=== PATIENT | female | born 1935 | race Caucasian/White ===

== ENCOUNTER 2017-11-18 07:05 | Day surgery (SDC) | payer OTHER ==
[~2017-11-18 07:05] MED LIST: ALBU90OI6 INH; BACL10 PO; CALCIUM, MAG, ZINC; CALTRATE D; CIPR500 PO; CLON.1 PO; CLON.1TP; CLON.1TP TP; CLON.2; CLON.2 PO; CLON2 PO; CODBUTACEC; CODBUTACEC PO; CYMBALTA; DULO60 PO; ESOM20 PO; ESTRACE; FLUT.05NI; FLUT44OIA INH; HYDACE10B PO; HYDACE5; HYDACE5 PO; HYDACE5325; IRON; LANS15EC; LANS30EC PO; LEVSOD150 PO; LEVSOD175; LEVSOD175 PO; LIDO5TP TOP; LOPE2C PO; LOPERAMIDE; LOSA25 PO; LOSHYD; LOSHYD100 PO; MAGOXI400 PO; METO10 PO; METO50 PO; MIRT15 PO; MULVITMINE PO; MUPI2TO TOP; NAPR500 PO; NEXIUM PO; NITR100 PO; OLAN10 PO; OXYACE5T PO; OXYC10TA19 PO; OXYC15ER PO; OXYCODONE; POTCHL10ER PO; POTCHL20ER PO; PREG100 PO; PREG150 PO; PROM25 PO; PROM25S PR; QUET100; QUIN325 PO; ROFE12.5; SUCR1 PO; TEQUIN PO; THYROID; TRAM50 PO; TRAZ100 PO; TRAZ50 PO; TUMS; VENL25 PO; VENL75; Ventolin Soln3 ML INH; ZOLP10 PO; ZOLP5; ZOLP5 PO; [UNRECOGNIZED DRUG - OTHER]; [UNRECOGNIZED DRUG - OTHER]; [UNRECOGNIZED DRUG - REMARK]; [UNRECOGNIZED DRUG - REMARK]; [UNRECOGNIZED DRUG - REMARK]
[2017-11-20 15:37] LABS: Performing Lab SYMBIODX; Test Name HER2 FISH
== END 2017-11-18 22:48 | disposition home or self-care (01) ==
LOC: MOI US 07:05 → MOI MAM 07:15 → MOI US 22:48
PROVIDERS: Family Medicine
DX: C50.912 Malignant neoplasm of unspecified site of left female breast (principal); Z17.0 Estrogen receptor positive status [ER+]
CPT/HCPCS: 19083; 19084; 38505; 76942; 77066; A4648

== ENCOUNTER → 2018-05-26 | Outpatient (CLI) | payer OTHER ==
[~2018-05-26] MED LIST changes: +ACIDOPHILUS1 EAC1 PO; +ALUM-MAG HYDRO360 ML PO; +BELSOMRA20 MG PO; +BUSP15 PO; +Butalbital-Asa1 EAC1 PO; +CALTRATE 600 +1 EACH PO; +DEXL60CA3 PO; +DICLOFONO2.5 GM TOP; +Estrace Vagin42.5 GM VAG; +Flonase 0.05% N16 GM; +Flovent 110 MCG12 GM INH; +K-Dur20 MEQ PO; +LOSARTAN-HCTZ1 EAC1 PO; +MAGOX 400400 MG PO; +MOME220I INH; +Norco 10-325 T1 EACH PO; +ONDA4ODT MM; +Pyridium100 MG PO; +RANI150EL PO; +SIME40L PO; +Synthroid/Lev0.15 MG PO; +TUMS300 MG PO; +WOMEN'S DAILY1 EAC1 PO; +[UNRECOGNIZED DRUG - OTHER] PO
== END | disposition home or self-care (01) ==
LOC: LAB 17:21 → LAB SHORT 17:21
DX: N39.0 Urinary tract infection, site not specified (principal)
CPT/HCPCS: 87077; 87086; 87186

== ENCOUNTER → 2018-06-25 | Outpatient (CLI) | payer OTHER ==
[~2018-06-25] MED LIST changes: +AMIT25 PO; +AMLO10 PO; +ANASTROZOLE 1MG PO; +ANASTROZOLE5 GM PO; +BUTALB-ACETAMI1 EACH PO; +CYCL10 PO; +DIPH50 PO; +Driminate50 MG PO; +MELA3 PO; +ONDA4 PO; +Omeprazole20 M1 PO; +RANITIDINE 150MG PO; +SACC250C PO; +VANC125 PO
[2018-06-25 19:18] LABS: Appearance, Urine Hazy (Clear); Blood, Urine 3+ (Neg); Color, Urine Yellow (P-Yellow); Glucose Qualitative, Urine Neg (Neg); Ketones, Urine Neg (Neg); Leukocyte Esterase, Urine 3+ (Neg); Nitrite, Urine Pos (Neg); Protein, Urine 2+ (Neg); Urobilinogen, Urine 2+ (Normal)
[2018-06-25 19:35] LABS: Bilirubin, Urine 2+ (Neg)
[2018-06-25 19:36] LABS: White Blood Cells, Urine 50-100 /hpf (0-5)
[2018-06-25 19:38] LABS: Bacteria Few /hpf; Squamous Epithelial Cells Few /hpf (Few)
== END | disposition home or self-care (01) ==
LOC: LAB SHORT 18:33 → LAB 18:33
PROVIDERS: Nurse Practitioner Family
DX: R82.90 Unspecified abnormal findings in urine (principal)
CPT/HCPCS: 81001; 87077; 87086; 87186

== ENCOUNTER → 2018-07-07 | Outpatient (CLI) | payer OTHER ==
[2018-07-07 18:51] LABS: Appearance, Urine Clear (Clear); Bilirubin, Urine Neg (Neg); Blood, Urine 1+ (Neg); Color, Urine Yellow (P-Yellow); Glucose Qualitative, Urine Neg (Neg); Ketones, Urine Neg (Neg); Leukocyte Esterase, Urine 3+ (Neg); Nitrite, Urine Neg (Neg); Protein, Urine 1+ (Neg); Specific Gravity, Urine 1.005 (1.003-1.022); Urobilinogen, Urine NORM (Normal)
[2018-07-07 19:33] LABS: Squamous Epithelial Cells Rare /hpf (Few)
[2018-07-07 19:35] LABS: Bacteria Rare /hpf
== END | disposition home or self-care (01) ==
LOC: LAB 18:38 → LAB SHORT 18:38
PROVIDERS: Nurse Practitioner Family
DX: N39.0 Urinary tract infection, site not specified (principal)
CPT/HCPCS: 81001; 87077; 87086; 87186

== ENCOUNTER → 2018-09-14 | Outpatient (CLI) | payer OTHER ==
[2018-09-14 14:43] LABS: Source, Urine Clean Catch
[2018-09-14 15:10] LABS: Red Blood Cells, Urine 0-2 /hpf (0-2)
[2018-09-14 15:11] LABS: Bacteria Few /hpf; Squamous Epithelial Cells Few /hpf (Few)
== END | disposition home or self-care (01) ==
LOC: LAB SHORT 14:42 → LAB 14:42 → LAB FUT 09-15 14:10
PROVIDERS: Urology
DX: N39.0 Urinary tract infection, site not specified (principal)
CPT/HCPCS: 81015; 87077; 87086; 87186

== ENCOUNTER → 2018-10-26 | Outpatient (CLI) | payer OTHER ==
[2018-10-27 15:24] LABS: Source, Urine Clean Catch
[2018-10-27 18:11] LABS: Bilirubin, Urine Neg (Neg); Blood, Urine Neg (Neg); Glucose Qualitative, Urine Neg (Neg); Ketones, Urine Neg (Neg); Leukocyte Esterase, Urine Neg (Neg); Nitrite, Urine Pos (Neg); Protein, Urine Neg (Neg); Urobilinogen, Urine NORM (Normal)
[2018-10-27 18:25] LABS: Appearance, Urine Clear (Clear); Color, Urine Yellow (P-Yellow)
[2018-10-27 18:26] LABS: Bacteria Many /hpf; Red Blood Cells, Urine 0-2 /hpf (0-2); Squamous Epithelial Cells Few /hpf (Few)
== END | disposition home or self-care (01) ==
LOC: LAB SHORT 15:22 → LAB 15:22
PROVIDERS: Urology
DX: N39.0 Urinary tract infection, site not specified (principal)
CPT/HCPCS: 81001; 87077; 87086; 87147; 87186

== ENCOUNTER → 2018-11-03 | Outpatient (CLI) | payer OTHER ==
[2018-11-03 16:21] LABS: Source, Urine Clean Catch
[2018-11-03 18:26] LABS: Bilirubin, Urine Neg (Neg); Blood, Urine 1+ (Neg); Glucose Qualitative, Urine Neg (Neg); Ketones, Urine Neg (Neg); Leukocyte Esterase, Urine Neg (Neg); Nitrite, Urine Neg (Neg); Protein, Urine Neg (Neg); Specific Gravity, Urine 1.015 (1.003-1.022); Urobilinogen, Urine NORM (Normal)
[2018-11-03 19:04] LABS: Appearance, Urine Clear (Clear); Color, Urine Yellow (P-Yellow)
[2018-11-03 19:05] LABS: Bacteria Few /hpf; Mucus Light (0-Heavy); Red Blood Cells, Urine 0-2 /hpf (0-2); Squamous Epithelial Cells Few /hpf (Few); White Blood Cells, Urine 0-2 /hpf (0-5)
== END | disposition home or self-care (01) ==
LOC: LAB SHORT 16:18 → LAB 16:18
PROVIDERS: Urology
DX: N39.0 Urinary tract infection, site not specified (principal)
CPT/HCPCS: 81001; 87077; 87086; 87186

== ENCOUNTER → 2018-12-02 | Outpatient (CLI) | payer OTHER | END | disposition home or self-care (01) | LOC: LAB SHORT 19:18 → LAB 19:18 | DX: K52.9 Noninfective gastroenteritis and colitis, unspecified (principal) | CPT/HCPCS: 87177; 87209 ==

== ENCOUNTER → 2018-12-08 | Outpatient (CLI) | payer OTHER ==
[2018-12-09 12:00] LABS: Adenovirus F 40/41 Not Detected (NOT DETECT); Astrovirus Not Detected (NOT DETECT); Campylobacter Sp Not Detected (NOT DETECT); Cryptosporidium Not Detected (NOT DETECT); Cyclospora Cayetanensis Not Detected (NOT DETECT); E. Coli O157 Not Detected (NOT DETECT); Entamoeba Histolytica Not Detected (NOT DETECT); Enteroaggregative E. coli-EAEC Not Detected (NOT DETECT); Enteropathogenic E. coli-EPEC Not Detected (NOT DETECT); Enterotoxigenic E. coli-ETEC Not Detected (NOT DETECT); Giardia Lamblia Not Detected (NOT DETECT); Norovirus GI/GII Not Detected (NOT DETECT); Plesiomonas Shigelloides Not Detected (NOT DETECT); Rotavirus A Not Detected (NOT DETECT); Salmonella Sp Not Detected (NOT DETECT); Sapovirus Not Detected (NOT DETECT); Shiga Toxin-prod E. coli-STEC Not Detected (NOT DETECT); Shigella/Enteroin E. coli-EIEC Not Detected (NOT DETECT); Vibrio Cholerae Not Detected (NOT DETECT); Vibrio Sp Not Detected (NOT DETECT); Yersinia Enterocolitica Not Detected (NOT DETECT)
== END | disposition home or self-care (01) ==
LOC: LAB 11:45 → LAB SHORT 11:45 → LAB FUT 12-01 07:45
PROVIDERS: Nurse Practitioner Family
DX: K52.9 Noninfective gastroenteritis and colitis, unspecified (principal)
CPT/HCPCS: 0097U; 87324

== ENCOUNTER → 2018-12-09 | Outpatient (CLI) | payer OTHER ==
[2018-12-09 19:12] LABS: Appearance, Urine Clear (Clear); Bilirubin, Urine Neg (Neg); Blood, Urine Neg (Neg); Color, Urine Yellow (P-Yellow); Glucose Qualitative, Urine Neg (Neg); Ketones, Urine Neg (Neg); Leukocyte Esterase, Urine Neg (Neg); Nitrite, Urine Neg (Neg); Protein, Urine Neg (Neg); Specific Gravity, Urine 1.005 (1.003-1.022); Urobilinogen, Urine NORM (Normal)
== END | disposition home or self-care (01) ==
LOC: LAB SHORT 18:03 → LAB 18:03
PROVIDERS: Urology
DX: N39.0 Urinary tract infection, site not specified (principal)
CPT/HCPCS: 81003; 87077; 87086; 87147; 87186

== ENCOUNTER → 2019-07-14 | Outpatient (CLI) | payer OTHER ==
[2019-07-14 19:50] LABS: Bilirubin, Urine Neg (Neg); Blood, Urine 1+ (Neg); Glucose Qualitative, Urine Neg (Neg); Ketones, Urine 1+ (Neg); Leukocyte Esterase, Urine 3+ (Neg); Nitrite, Urine Neg (Neg); Protein, Urine 1+ (Neg); Specific Gravity, Urine 1.025 (1.003-1.022); Urobilinogen, Urine NORM (Normal)
[2019-07-14 20:01] LABS: Appearance, Urine Cloudy (Clear); Color, Urine Yellow (P-Yellow)
[2019-07-14 20:03] LABS: Red Blood Cells, Urine Not Seen /hpf (0-2); Squamous Epithelial Cells Rare /hpf (Few); White Blood Cells, Urine 25-50 /hpf (0-5)
[2019-07-14 20:04] LABS: Amorphous Heavy (0-Heavy); Bacteria Few /hpf
== END | disposition home or self-care (01) ==
LOC: LAB 17:32 → LAB SHORT 17:32
PROVIDERS: Urology
DX: N39.0 Urinary tract infection, site not specified (principal)
CPT/HCPCS: 81001; 87077; 87086; 87186

== ENCOUNTER 2022-08-27 09:25 | Inpatient (IN) | payer OTHER ==
[~2022-08-27] VITALS: Ht 165.1 cm; Wt 111.1 kg
[~2022-08-27 09:25] MED LIST changes: +ATOR20 PO; +CILO100 PO; +DOXE10 PO; +HYDHCL25 PO
[2022-08-27 10:32] LABS: BASOPHILS ABSOLUTE AUTO 0.06 K/mm3 (0.00-0.23); BASOPHILS PERCENT AUTO 1 % (0-2); EOSINOPHILS ABSOLUTE AUTO 0.05 K/mm3 (0.00-0.68); EOSINOPHILS PERCENT AUTO 1 % (0-6); Hematocrit 34.6 % (33.0-51.0); Hemoglobin 11.2 g/dL (11.5-16.0); IMMATURE GRAN ABSOLUTE AUTO 0.05 K/mm3 (0.00-0.10); IMMATURE GRAN PERCENT AUTO 1 % (0-1); LYMPHOCYTES PERCENT AUTO 19 % (21-46); MONOCYTES ABSOLUTE AUTO 0.64 K/mm3 (0.16-1.47); MONOCYTES PERCENT AUTO 7 % (4-13); Mean Corpuscular HGB 30.6 pg (26.0-34.0); Mean Corpuscular HGB Conc 32.4 g/dL (31.5-36.5); Mean Corpuscular Volume 95 fL (80-100); Mean Platelet Volume 9.5 fL (9.1-12.4); NEUTROPHILS ABSOLUTE AUTO 6.42 K/mm3 (1.96-9.15); NEUTROPHILS PERCENT AUTO 72 % (41-73); Platelet Count 259 K/mm3 (150-400); RDW Coefficient Variation 13.5 % (11.7-14.2); RDW Standard Deviation 47.3 fL (35.1-46.3); Red Blood Cell Count 3.66 M/mm3 (3.80-5.20); White Blood Cell Count 8.92 K/mm3 (4.00-11.30)
[2022-08-27] MEDS ORDERED: BUTALB-ACETAMI1 EAC5 PO (10:35)
[2022-08-27] MEDS ORDERED: HYDROCODONE-AC1 EAC7 PO (10:35)
[2022-08-27] MEDS ORDERED: Potassium Chlo20 ME1 PO (10:35)
[2022-08-27] MEDS ORDERED: ANASTROZOLE1 M7 PO (10:36)
[2022-08-27] MEDS ORDERED: PREGABALIN100 MG PO (10:36)
[2022-08-27] MEDS ORDERED: DEXLANSOPRAZOLE60 MG PO (10:36)
[2022-08-27] MEDS ORDERED: Buspirone HCl15 MG PO ×2 (10:36→10:37)
[2022-08-27] MEDS ORDERED: ZOLPIDEM TARTRA10 MG PO (10:36)
[2022-08-27] MEDS ORDERED: EUTHYROX150 MC1 PO (10:36)
[2022-08-27] MEDS ORDERED: ONDA4 PO (10:38)
[2022-08-27] MEDS ORDERED: METOPROLOL TART5010 PO (10:38)
[2022-08-27] MEDS ORDERED: Vistaril50 MG PO (10:44)
[2022-08-27] MEDS ORDERED: Flovent 44 mc10.6 GM INH (10:44)
[2022-08-27] MEDS ORDERED: Ventolin/Prove6.7 GM INH ×2 (10:44→10:45)
[2022-08-27] MEDS ORDERED: potassium chloride E (10:44)
[2022-08-27] MEDS ORDERED: DEXLANSOPRAZOLE30 MG PO (10:45)
[2022-08-27 10:58] LABS: C-REACTIVE PROTEIN, EXT RANGE 1.34 mg/dL (0.000-0.300); Magnesium, Blood 1.8 mg/dL (1.6-2.4)
[2022-08-27 11:59] LABS: Albumin, Blood 4.2 g/dL (3.4-5.0); Albumin/Globulin Ratio 1.1 (0.8-1.8); Bilirubin, Total 0.6 mg/dL (0.1-1.0); Bun/Creatinine Ratio 19.7 (12.0-20.0); Calcium, Blood 9.4 mg/dL (8.5-10.1); Creatinine, Blood 0.76 mg/dL (0.40-1.00); Globulin, Blood 3.7 g/dL (2.2-4.0); Total Protein, Blood 7.9 g/dL (6.4-8.2)
[2022-08-27 19:24] LABS: Source, Urine Clean Catch
[2022-08-27 19:32] LABS: Appearance, Urine Clear (Clear); Bilirubin, Urine Neg (Neg); Blood, Urine 2+ (Neg); Glucose Qualitative, Urine Neg (Neg); Ketones, Urine 1+ (Neg); Leukocyte Esterase, Urine Neg (Neg); Nitrite, Urine Neg (Neg); Protein, Urine 1+ (Neg); Urobilinogen, Urine NORM (Normal)
[2022-08-27 19:37] LABS: Color, Urine Pale Yellow (P-Yellow)
[2022-08-27 19:40] LABS: Bacteria Few /hpf; Squamous Epithelial Cells Rare /hpf (Few); White Blood Cells, Urine 0-2 /hpf (0-5)
[2022-08-27 23:05] VITALS: BP 168/97
[2022-08-28 04:41] VITALS: BP 177/74
[2022-08-28 06:27] LABS: Calcium, Blood 9.3 mg/dL (8.5-10.1); Creatinine, Blood 0.6 mg/dL (0.40-1.00); Potassium, Blood 3.9 mmol/L (3.5-5.5)
[2022-08-28 07:41] LABS: Base Excess Venous 4.2 mmol/L; Bicarbonate Venous 28.5 mmol/L (24.0-30.0); PCO2 Venous 30.6 mmHg (38-42)
[2022-08-28 07:44] LABS: pH Blood Venous 7.55 (7.34-7.37)
[2022-08-28 08:02] VITALS: BP 190/91
[2022-08-28 10:07] VITALS: BP 162/81
[2022-08-28 10:55] VITALS: BP 158/66
[2022-08-28 11:34] VITALS: BP 166/70
[2022-08-28 22:21] VITALS: BP 165/76
[2022-08-29 03:45] VITALS: BP 170/64
[2022-08-29 06:22] LABS: BASOPHILS ABSOLUTE AUTO 0.06 K/mm3 (0.00-0.23); BASOPHILS PERCENT AUTO 1 % (0-2); EOSINOPHILS ABSOLUTE AUTO 0.06 K/mm3 (0.00-0.68); EOSINOPHILS PERCENT AUTO 1 % (0-6); Hematocrit 35.2 % (33.0-51.0); Hemoglobin 11.9 g/dL (11.5-16.0); IMMATURE GRAN ABSOLUTE AUTO 0.12 K/mm3 (0.00-0.10); IMMATURE GRAN PERCENT AUTO 1 % (0-1); LYMPHOCYTES PERCENT AUTO 18 % (21-46); MONOCYTES PERCENT AUTO 10 % (4-13); Mean Corpuscular HGB 30.6 pg (26.0-34.0); Mean Corpuscular HGB Conc 33.8 g/dL (31.5-36.5); Mean Corpuscular Volume 91 fL (80-100); Mean Platelet Volume 9.2 fL (9.1-12.4); NEUTROPHILS ABSOLUTE AUTO 7.46 K/mm3 (1.96-9.15); NEUTROPHILS PERCENT AUTO 70 % (41-73); NRBC ABSOLUTE 0.02 K/mm3 (0.00-0.02); NRBC Auto 0.2 /100 WBC (0.0-0.2); Platelet Count 266 K/mm3 (150-400); RDW Coefficient Variation 13.8 % (11.7-14.2); RDW Standard Deviation 44.8 fL (35.1-46.3); Red Blood Cell Count 3.89 M/mm3 (3.80-5.20)
[2022-08-29 07:00] LABS: Calcium, Blood 8.6 mg/dL (8.5-10.1); Creatinine, Blood 0.76 mg/dL (0.40-1.00); Potassium, Blood 3.1 mmol/L (3.5-5.5)
[2022-08-29 07:53] VITALS: BP 202/68
[2022-08-29 08:20] LABS: Source, Urine Voided
[2022-08-29 08:30] LABS: Appearance, Urine Clear (Clear); Blood, Urine 4+ (Neg); Glucose Qualitative, Urine Neg (Neg); Ketones, Urine 3+ (Neg); Leukocyte Esterase, Urine Neg (Neg); Nitrite, Urine Pos (Neg); Protein, Urine 3+ (Neg); Specific Gravity, Urine 1.025 (1.003-1.022); Urobilinogen, Urine 2+ (Normal)
[2022-08-29 08:49] LABS: Magnesium, Blood 1.5 mg/dL (1.6-2.4); Phosphorus, Blood 3.1 mg/dL (2.5-4.9)
[2022-08-29 09:27] LABS: Color, Urine Orange (P-Yellow)
[2022-08-29 09:28] LABS: Bilirubin, Urine 2+ (Neg)
[2022-08-29 09:29] LABS: Mucus Light (0-Heavy); White Blood Cells, Urine Not Seen /hpf (0-5)
[2022-08-29 09:30] LABS: Amorphous Light (0-Heavy); Bacteria Rare /hpf; Squamous Epithelial Cells Few /hpf (Few)
[2022-08-29 15:48] VITALS: BP 153/58
[2022-08-29 19:19] VITALS: BP 120/41
[2022-08-30 03:58] VITALS: BP 131/54
[2022-08-30 04:52] VITALS: BP 138/60
[2022-08-30 05:19] LABS: BASOPHILS ABSOLUTE AUTO 0.05 K/mm3 (0.00-0.23); BASOPHILS PERCENT AUTO 1 % (0-2); EOSINOPHILS ABSOLUTE AUTO 0.12 K/mm3 (0.00-0.68); EOSINOPHILS PERCENT AUTO 1 % (0-6); Hematocrit 36.1 % (33.0-51.0); IMMATURE GRAN ABSOLUTE AUTO 0.08 K/mm3 (0.00-0.10); IMMATURE GRAN PERCENT AUTO 1 % (0-1); LYMPHOCYTES ABSOLUTE AUTO 2.28 K/mm3 (0.84-5.20); LYMPHOCYTES PERCENT AUTO 24 % (21-46); MONOCYTES ABSOLUTE AUTO 1.12 K/mm3 (0.16-1.47); MONOCYTES PERCENT AUTO 12 % (4-13); Mean Corpuscular HGB 31.1 pg (26.0-34.0); Mean Corpuscular HGB Conc 33.2 g/dL (31.5-36.5); Mean Corpuscular Volume 94 fL (80-100); Mean Platelet Volume 9.5 fL (9.1-12.4); NEUTROPHILS ABSOLUTE AUTO 5.71 K/mm3 (1.96-9.15); NEUTROPHILS PERCENT AUTO 61 % (41-73); NRBC ABSOLUTE 0.02 K/mm3 (0.00-0.02); NRBC Auto 0.2 /100 WBC (0.0-0.2); Platelet Count 259 K/mm3 (150-400); RDW Coefficient Variation 14.4 % (11.7-14.2); RDW Standard Deviation 47.1 fL (35.1-46.3); Red Blood Cell Count 3.86 M/mm3 (3.80-5.20); White Blood Cell Count 9.36 K/mm3 (4.00-11.30)
[2022-08-30 06:03] LABS: Calcium, Blood 8.4 mg/dL (8.5-10.1); Magnesium, Blood 1.7 mg/dL (1.6-2.4); Potassium, Blood 3.4 mmol/L (3.5-5.5)
[2022-08-30 06:23] VITALS: BP 139/61
[2022-08-30 07:31] VITALS: BP 139/57
[2022-08-30 19:37] VITALS: BP 119/45
[2022-08-31 03:27] VITALS: BP 110/52
[2022-08-31 06:50] LABS: BASOPHILS ABSOLUTE AUTO 0.04 K/mm3 (0.00-0.23); BASOPHILS PERCENT AUTO 0 % (0-2); EOSINOPHILS ABSOLUTE AUTO 0.28 K/mm3 (0.00-0.68); EOSINOPHILS PERCENT AUTO 3 % (0-6); Hematocrit 36.4 % (33.0-51.0); Hemoglobin 11.8 g/dL (11.5-16.0); IMMATURE GRAN ABSOLUTE AUTO 0.08 K/mm3 (0.00-0.10); IMMATURE GRAN PERCENT AUTO 1 % (0-1); LYMPHOCYTES ABSOLUTE AUTO 2.25 K/mm3 (0.84-5.20); LYMPHOCYTES PERCENT AUTO 22 % (21-46); MONOCYTES ABSOLUTE AUTO 1.43 K/mm3 (0.16-1.47); MONOCYTES PERCENT AUTO 14 % (4-13); Mean Corpuscular HGB Conc 32.4 g/dL (31.5-36.5); Mean Corpuscular Volume 96 fL (80-100); Mean Platelet Volume 9.8 fL (9.1-12.4); NEUTROPHILS ABSOLUTE AUTO 6.33 K/mm3 (1.96-9.15); NEUTROPHILS PERCENT AUTO 61 % (41-73); Platelet Count 270 K/mm3 (150-400); RDW Coefficient Variation 14.5 % (11.7-14.2); RDW Standard Deviation 49.7 fL (35.1-46.3); Red Blood Cell Count 3.81 M/mm3 (3.80-5.20); White Blood Cell Count 10.41 K/mm3 (4.00-11.30)
[2022-08-31 06:51] LABS: Bun/Creatinine Ratio 25.4 (12.0-20.0); Calcium, Blood 8.4 mg/dL (8.5-10.1); Creatinine, Blood 1.3 mg/dL (0.40-1.00); Potassium, Blood 4.1 mmol/L (3.5-5.5)
[2022-08-31 07:05] VITALS: BP 125/50
[2022-08-31] MEDS ORDERED: LISI20 PO (11:24)
[2022-08-31] MEDS ORDERED: FURO20 PO (11:25)
== END 2022-08-31 14:45 | disposition home or self-care (01) | DRG 291 ==
LOC: ER 09:25 → PCU 09:26 → MEDS 08-28 20:20
PROVIDERS: Family Medicine; Nurse Practitioner Acute Care; Student in an Organized Health Care Education/Training Program; ADMIT Student in an Organized Health Care Education/Training Program
DX: I11.0 Hypertensive heart disease with heart failure (principal); G92.8 Other toxic encephalopathy; I50.33 Acute on chronic diastolic (congestive) heart failure; Z68.43 Body mass index [BMI] 50.0-59.9, adult; E87.1 Hypo-osmolality and hyponatremia; F11.20 Opioid dependence, uncomplicated; Z66 Do not resuscitate; I16.0 Hypertensive urgency; E03.9 Hypothyroidism, unspecified; G89.29 Other chronic pain; F41.9 Anxiety disorder, unspecified; E66.01 Morbid (severe) obesity due to excess calories; I48.0 Paroxysmal atrial fibrillation; M79.604 Pain in right leg; M79.605 Pain in left leg; F32.A Depression, unspecified; G47.33 Obstructive sleep apnea (adult) (pediatric); E83.42 Hypomagnesemia; E87.6 Hypokalemia; E78.5 Hyperlipidemia, unspecified; K21.9 Gastro-esophageal reflux disease without esophagitis; G25.81 Restless legs syndrome; I73.9 Peripheral vascular disease, unspecified; Z96.653 Presence of artificial knee joint, bilateral; Z91.018 Allergy to other foods; Z88.6 Allergy status to analgesic agent; Z88.8 Allergy status to other drugs, medicaments and biological substances; Z88.5 Allergy status to narcotic agent; Z88.2 Allergy status to sulfonamides; Z88.1 Allergy status to other antibiotic agents; Z79.890 Hormone replacement therapy; Z79.899 Other long term (current) drug therapy; Z79.2 Long term (current) use of antibiotics; Z85.3 Personal history of malignant neoplasm of breast; Z90.12 Acquired absence of left breast and nipple; Z90.49 Acquired absence of other specified parts of digestive tract; Z87.39 Personal history of other diseases of the musculoskeletal system and connective tissue; Z99.81 Dependence on supplemental oxygen; Z86.19 Personal history of other infectious and parasitic diseases; Z87.19 Personal history of other diseases of the digestive system; Z79.51 Long term (current) use of inhaled steroids; Z79.52 Long term (current) use of systemic steroids; Z79.02 Long term (current) use of antithrombotics/antiplatelets; Z74.01 Bed confinement status
CPT/HCPCS: 36415; 70450; 71260; 75635; 80048; 80053; 81001; 82550; 82803; 82947; 83605; 83735; 83880; 84100; 84443; 84484; 85025; 85651; 86140; 93005; 93010; 93306; 93970; 94760; 96365-59; 96372; 96375; 96375-59; 96376; 96376-59; 99285-25; A9270; G0378; J0360; J1650; J1940; J2270; J2405; J3010; J3475; J3480; J7030; J7050; Q9967